=== PATIENT | male | born 1990 ===

== ENCOUNTER 2025-02-14 12:12 | Emergency (ER) | payer MEDICAID ==
[2025-02-14 12:42] LABS: BASOPHILS ABSOLUTE AUTO 0.04 10^3/uL (0.00-0.50); BASOPHILS PERCENT AUTO 0.4 % (0-1); EOSINOPHILS ABSOLUTE AUTO 0.09 10^3/uL (0.00-1.50); EOSINOPHILS PERCENT AUTO 0.9 % (0-6); HEMATOCRIT 42.8 % (42.0-52.0); HEMOGLOBIN 14.3 g/dL (14.0-18.0); IMMATURE GRAN ABSOLUTE AUTO 0.02 10^3/uL (0.00-0.49); IMMATURE GRAN PERCENT AUTO 0.2 % (0.0-4.9); LYMPHOCYTES ABSOLUTE AUTO 2.55 10^3/uL (0.60-5.00); MEAN CORPUSCULAR HEMOGLOBIN 29.4 pg (27.0-32.0); MEAN CORPUSCULAR HGB CONC 33.4 g/dL (32.0-36.0); MEAN CORPUSCULAR VOLUME 88.1 fL (83.0-97.0); MONOCYTES ABSOLUTE AUTO 0.55 10^3/uL (0.00-1.50); MONOCYTES PERCENT AUTO 5.6 % (0-10); NEUTROPHILS ABSOLUTE AUTO 6.55 x10^3/uL (1.80-8.00); NEUTROPHILS PERCENT AUTO 66.9 % (41-71); PLATELET COUNT,PLT 201 10^3/uL (150-400); RED BLOOD CELL COUNT 4.86 x10^6/uL (4.50-6.00); WHITE BLOOD CELL COUNT,WBC 9.8 10^3/uL (4.0-11.0)
[2025-02-14 12:58] LABS: ALANINE AMINOTRANSFERASE,ALT 39 U/L (12-78); ALBUMIN 3.9 g/dL (3.4-5.0); ALKALINE PHOSPHATASE 90 U/L (46-116); ASPARTATE AMNIOTRANSFERASE,AST 19 U/L (15-37); BILIRUBIN TOTAL 0.8 mg/dL (0.0-1.0); BLOOD UREA NITROGEN,BUN 16 mg/dL (7-18); CALCIUM 9.1 mg/dL (8.4-10.1); CARBON DIOXIDE,CO2 27 mmol/L (21-32); CHLORIDE,CL 105 mEq/L (98-106); EST CRCL DRUG DOSING (CG) 95.48 mL/min; ESTIMATED GFR 100 mL/min (>=60); GLUCOSE RANDOM 88 mg/dL (75-99); MAGNESIUM 1.7 mg/dL (1.8-2.4); POTASSIUM,K 3.7 mEq/L (3.5-5.0); PROTEIN TOTAL,TP 7.7 g/dL (6.4-8.2); SODIUM,NA 141 mEq/L (136-145)
== END 2025-02-14 13:49 | disposition home or self-care (01) ==
LOC: CC.ED 12:12
DX: R42 Dizziness and giddiness (principal); F17.210 Nicotine dependence, cigarettes, uncomplicated
CPT/HCPCS: 36415; 80053; 83735; 84484; 85025; 93005; 99284

== ENCOUNTER 2025-03-16 21:43 | Emergency (ER) | payer MEDICAID ==
[2025-03-16] MEDS: Ketorolac 30 MG/ML SDV IM ONE (22:17)
[2025-03-16] MEDS: Take Home: Acetaminophen/HYDROcodone 325-5 MG, 2 Tab Pack PO ONE (22:35)
[2025-03-16] MEDS: Take Home: Amoxicillin/Clavulanate K 875-125 MG Tab, 2 Tab Pack PO ONE (22:36)
== END 2025-03-16 22:35 | disposition home or self-care (01) ==
LOC: CC.ED 21:43
DX: K04.7 Periapical abscess without sinus (principal); F17.210 Nicotine dependence, cigarettes, uncomplicated; Z79.899 Other long term (current) drug therapy
CPT/HCPCS: 96372; 99282; A9270-GY; J1885